=== PATIENT | female | born 1955 | race Caucasian/White ===

== ENCOUNTER 2018-05-04 11:35 | Outpatient (CLI) | payer BC ==
[~2018-05-04] VITALS: Ht 160 cm; Wt 81.3 kg
--- NOTE | ~2018-05-04 | HEMODYNAMI ---
PATIENT:SARITHA TUBBS MEDICAL RECORD: [id number] : 53 LOCATION:D.CAT ADMISSION DATE: 05/04/18 Generatedon:05/04/201813:45 Patient name: SARITHA TUBBS Patient #: [id number] SSN: : Date of study: 05/04/2018 Page: Of Hemodynamic Procedure Report Patient Data Patient Demographics Procedure consent was obtained First Name: SARITHA Gender: Female Last Name: ARLEY : 1955 Middle Initial: PATIENCE Age: 63 year(s) Patient #: [id number] Race: Unknown Additional ID: [id number] Contact details Address: [address] [place] [address] [place] State: [place] City: [place] Zip code: [address] Past Medical History Allergies Allergen Reaction Date Comments Reported NSAIDs 05/04/2018 Other allergy 05/04/2018 BENADRYL Admission Admission Data Admission Date: 05/04/2018 Admission Time: 11:35 Procedure Procedure Types Cath Procedure Diagnostic Procedure PPM/ICD PPM Dual Implant Loop Recorder Removal Procedure Description Procedure Date Procedure Date: 05/04/2018 Procedure Start Time: 13:06 Procedure End Time: 13:45 Procedure Staff Name Function Mark Fried MD Performing Physician Gab Bates MD Assisting physician Stoney Medina RN Nurse Yumiko Cooper RT Scrub Morena Oliveira RT Monitor Procedure Data Cath Procedure Fluoroscopy Diagnostic fluoroscopy Total fluoroscopy Time: 4 time: 4 min min Diagnostic fluoroscopy Total fluoroscopy dose: 97 dose: 97 mGy mGy Estimated blood loss: 5 ml Procedure Complications No complications Procedure Medications Medication Administration Route Dosage Ancef (1Gm/50ml NS) I.V.P.B 1 g Lidocaine 1% added to field 20 Oxygen etCO2 Nasal cannula 2 l/min Versed I.V. 1 mg Fentanyl I.V. 50 mcg Versed I.V. 1 mg Fentanyl I.V. 50 mcg Versed I.V. 0.5 mg Fentanyl I.V. 25 mcg Versed I.V. 0.5 mg Fentanyl I.V. 25 mcg Versed I.V. 1 mg Fentanyl I.V. 50 mcg Ancef Irrigation Topical 1 g (1gm/500ml NS) Hemodynamics Rest Heart Rate: 58 (bpm) Snapshots Pre Cath Intra NCS Post Cath Vital Signs Time Heart Resp SPO2 etCO2 NIBP (mmHg) Rhythm Pain Sedation Rate (ipm) (%) (mmHg) Status Level (bpm) 12:48:51 64 21 96 32.9 125/74(96) NSR 0 (11) 10(A) , No pain 12:53:05 57 18 95 32.1 125/69(103) NSR 0 (11) 10(A) , No pain 12:57:23 57 15 95 31.4 131/78(93) NSR 0 (11) 10(A) , No pain 13:01:37 63 13 96 37.4 118/68(96) NSR 0 (11) 10(A) , No pain 13:05:50 70 11 95 31.4 116/58(82) NSR 0 (11) 10(A) , No pain 13:10:07 73 17 94 39.6 117/67(87) NSR 0 (11) 9(A) , No pain 13:14:19 71 16 93 38.8 131/80(94) NSR 0 (11) 9(A) , No pain 13:18:37 72 13 94 41.1 117/64(86) NSR 0 (11) 9(A) , No pain 13:22:51 84 13 96 38.1 104/70(98) NSR 0 (11) 9(A) , No pain 13:27:52 68 14 97 39.6 126/67(92) NSR 0 (11) 9(A) , No pain 13:32:10 63 16 97 41.1 128/68(93) NSR 0 (11) 9(A) , No pain 13:36:28 69 13 97 40.4 125/72(105) NSR 0 (11) 9(A) , No pain 13:40:40 84 14 96 40 119/71(88) NSR 0 (11) 9(A) , No pain 13:44:27 71 14 96 39.6 110/77(86) NSR 0 (11) 10(A) , No pain Medications Time Medication Route Dose Verified Delivered Reason Notes Effectiv eness by by 12:51:07 Ancef I.V.P.B 1 g Mark Lua used for (1Gm/50ml St Daron Medina RN procedure NS) 12:51:41 Lidocaine added 20ml Mark De Guzman for local 1% to vial St Daron Bates MD anesthetic field x 2 12:51:56 Oxygen etCO2 2 Mark Lua used for Nasal l/min St Daron Medina RN procedure cannula 12:52:14 Ancef Topical 1 g Mark Gurrolaian used for Irrigation St Daron Bates MD procedure (1gm/500ml NS) 13:04:43 Versed I.V. 1 mg Mark Rgie for Leonor Medina RN sedation 13:04:50 Fentanyl I.V. 50 Mark Rgie for mcg Leonor Medina RN sedation 13:08:05 Versed I.V. 1 mg Mark Rgie for Leonor Medina RN sedation 13:08:09 Fentanyl I.V. 50 Mark Rgie for mcg Leonor Medina RN sedation 13:15:27 Versed I.V. 0.5 Mark Buffie for mg Leonor Medina RN sedation 13:15:33 Fentanyl I.V. 25 Mark Buffie for mcg Leonor Medina RN sedation 13:20:30 Versed I.V. 1 mg Mark Rgie for Leonor Medina RN sedation 13:20:34 Fentanyl I.V. 50 Mark Buffie for mcg Leonor Medina RN sedation 13:31:58 Versed I.V. 0.5 Mark Buffie for mg Leonor Medina RN sedation 13:32:03 Fentanyl I.V. 25 Mark Rgie for mcg Leonor Medina RN sedation Procedure Log Time Note 12:29:00 Time tracking: Regular hours (M-F 7:00 - 5:00) 12:29:04 Plan of Care:Hemodynamics will remain stable., Cardiac rhythm will remain stable., Comfort level will be maintained., Respiratory function will remain adequate., Patient/ family verbilizes understanding of procedure., Procedure tolerated without complication., Recovers from procedure without complications.. 12:29:09 Stoney Medina RN sent for patient. Start room use. 12:39:54 Patient received from Pre/Post Procedure Room to CCL 3 Alert and oriented. Tansferred to table in Supine position. 12:39:55 Warm blankets applied, and chago hugger turned on for patient comfort. 12:39:55 Correct patient and procedure confirmed by team. 12:39:56 Signed procedure consent form obtained from patient. 12:39:57 ECG and BP/O2 sat monitors applied to patient. 12:39:58 Full Disclosure recording started 12:47:45 Vital chart was started 12:47:48 Rhythm: sinus bradycardia 12:48:05 H&P Date Dictated: 04/27/2018 Within 30 days and on chart., H&P Addendum completed by physician on day of procedure. (MUST COMPLETE FOR ALL OUTPATIENTS). 12:48:14 Pre-procedure instructions explained to patient. 12:48:14 Pre-op teaching completed and patient verbalized understanding. 12:48:17 Family in patients room. 12:48:18 Patient NPO since Midnight. 12:48:28 Patient allergic to NSAIDs 12:48:44 Patient allergic to Other allergyBENADRYL 12:48:46 Is the patient allergic to Iodine/contrast media? No. 12:48:48 Is patient on blood thinner?No 12:48:49 Patient diabetic? No. 12:48:52 Previous problem with sedation/anesthesia? No ? 12:48:54 Snore? Yes 12:48:55 Sleep apnea? No 12:48:56 Deviated septum? No 12:48:57 Opens mouth fully? Yes 12:48:58 Sticks out tongue? Yes 12:49:00 Airway obstruction? No ? 12:49:02 Dentures? No ? 12:49:07 Patient pain scale 0/10 ?. 12:49:16 IV patent on arrival in left forearm with 0.9% NaCl at [facility]. 12:49:18 Lab results completed and on chart. 12:49:23 Left chest area was prepped with chlora-prep and draped in sterile fashion 12:49:24 Alarms reviewed by R. N. 12:49:24 Sharps counted by scrub and verified by R.N. 12:49:49 Medtronic national sales representative PEDRITO VASQUEZ present for procedure. 12:49:59 Pre sharps counted by scrub and verified by RN: Sutures: 7; Sponges: 5; Stick needles: 2; Skin needles: 2; Blade: 1; Cautery: 1 12:50:01 Grounding pad site Left thigh. 12:50:05 Grounding pad site free from injury. 12:50:10 Use device set JOSE CARLOS PPM 12:50:13 2-0 Ticron Multipack ([id number]) opened to sterile field. 12:50:13 3-0 Vicryl Single Pack [id number] opened to sterile field. 12:50:14 5-0 Monocryl PS2 [id number] opened to sterile field. 12:50:15 Cautery Tip Insulation Blower opened to sterile field. 12:50:15 Cautery Pushbutton Pencil opened to sterile field. 12:50:16 Mepilex Dressing ([id number]) opened to sterile field. 12:50:18 Immobilizer Large opened to sterile field. 12:51:07 Ancef (1Gm/50ml NS) 1 g I.V.P.B was administered by Stoney Medina RN; used for procedure; 12:51:41 Lidocaine 1% 20ml vial x 2 added to field was administered by Gab Bates MD; for local anesthetic; 12:51:56 Oxygen 2 l/min etCO2 Nasal cannula was administered by Stoney Medina RN; used for procedure; 12:52:14 Ancef Irrigation (1gm/500ml NS) 1 g Topical was administered by Gab Bates MD; used for procedure; 12:56:07 Baseline sample Acquired. 12:57:05 Physician paged 13:02:43 Final Timeout: patient, procedure, and site verified with staff and physician. All members of the team are in agreement. 13:02:47 Left chest site verified by team. 13:02:52 Physical assessment completed. ASA score P 2 - A patient with mild systemic disease as per Gab Bates MD. 13:02:54 Sedation plan: IV Moderate Sedation Medication:Versed, Fentanyl 13:04:43 Versed 1 mg I.V. was administered by Stoney Medina RN; for sedation; 13:04:50 Fentanyl 50 mcg I.V. was administered by Stoney Medina RN; for sedation; 13:06:27 Procedure started. 13:06:33 Lidocaine 1% was administered to left subclavicular area by Gab Bates MD . 13:08:05 Versed 1 mg I.V. was administered by Buffie Medina RN; for sedation; 13:08:09 Fentanyl 50 mcg I.V. was administered by Stoney Medina RN; for sedation; 13:08:34 Incision made to left subclavicular area. 13:08:45 Generator pocket made/opened. 13:12:47 DR VEGA. 13:14:04 Left subclavian vein accessed with 7Fr Peel Away Sheath. 13:14:08 Ventricular lead inserted and advanced. 13:14:11 Left subclavian vein accessed with 7Fr Peel Away Sheath. 13:14:13 Atrial lead inserted and advanced. 13:15:27 Versed 0.5 mg I.V. was administered by Stoney Medina RN; for sedation; 13:15:33 Fentanyl 25 mcg I.V. was administered by Stoney Medina RN; for sedation; 13:17:12 DR FRIED ARRIVED. 13:20:30 Versed 1 mg I.V. was administered by Stoney Medina RN; for sedation; 13:20:34 Fentanyl 50 mcg I.V. was administered by Stoney Medina RN; for sedation; 13:25:23 Ventricular lead positioned. 13:25:34 Ventricular lead tested. 13:25:37 Atrial lead positioned. 13:25:42 Atrial lead tested. 13:26:27 Peel-a-way sheath was split and removed. 13:26:28 Peel-a-way sheath was split and removed. 13:27:01 DR FRIED SCRUBBED OUT 13:27:08 Ventricular lead attachment was completed with 2-0 ticron. 13:28:37 Atrial lead attachment was completed with 2-0 ticron. 13:29:23 PPM Dual was attached to lead(s) and inserted into pocket. 13:29:56 Medtronic Advisa MRI PPM Dual Generator [id number] opened to sterile field. 13:29:57 Medtronic 4574-45 PPM Lead opened to sterile field. 13:29:57 Medtronic 4074-52 PPM Lead opened to sterile field. 13:31:58 Versed 0.5 mg I.V. was administered by Stoney Medina RN; for sedation; 13:32:00 Generator was sutured in place with 2-0 ticron. 13:32:03 Fentanyl 25 mcg I.V. was administered by Stoney Medina RN; for sedation; 13:32:07 Device pocket was irrigated with Ancef. 13:32:21 Subcutaneous closure was completed with 3-0 vicryl. 13:32:54 Parameters-- Generator: Mode: AAIR<=>DDDR. Lower Rate: 60bpm. Upper Rate: 120bpm. 13:33:23 Parameters--Ventricular P/R Wave: 7.7mV. Current: 0.1mA; Threshold: 0.3V; Impedence: 1502OHMS. 13:33:49 Parameters--Atrial P/R Wave: 4.5mV. Current: 0.3mA; Threshold: 0.3V; Impedence: 943OHMS. 13:34:18 Skin closure was completed with 5-0 monocryl. 13:36:42 SKIN INCISION MADE LEFT CHEST FOR LINQ REMOVAL 13:36:46 Linq was removed.. 13:36:55 Skin closure was completed with 5-0 monocryl. 13:37:48 Lt Chest incision was dressed with Mepilex dressing. 13:39:20 Procedure type changed to Cath procedure, Diagnostic procedure, PPM/ICD, PPM Dual Implant, Loop Recorder Removal 13:40:30 Procedure ended.(Physican Out) 13:40:38 Fluoroscopy time 04.00 minutes. 13:40:44 Fluoroscopy dose: 97 mGy 13:40:44 Flurop Dose total: 97 13:40:46 Sharps counted by scrub and verified by R.N. 13:40:59 Post sharps counted by scrub and verified by RN: Sutures: 7; Sponges: 5; Stick needles: 2; Skin needles: 2; Blade: 1; Cautery: 1 13:41:03 Insertion/operative site no bleeding no hematoma. 13:41:09 Post Chest area:stable, clean and dry 13:41:11 Post Procedure Pulses reassessed and unchanged 13:41:15 Post-procedure physical assessment completed. ASA score P 2 - A patient with mild systemic disease as per Gab Bates MD. 13:41:16 Post procedure rhythm: unchanged. 13:41:19 Estimated blood loss: 5 ml 13:41:23 Post procedure instruction explained to patient.Patient verbalizes understanding. 13:41:23 Patient needs reinforcement of post procedure teaching. 13:41:28 Procedure Complication : No complications 13:41:30 See physician's report for complete and final results. 13:42:17 Procedure and supply charges have been captured, reviewed, submitted and are correct. 13:42:41 PPM Dual was interrogated. 13:45:10 Vital chart was stopped 13:45:12 Report given to PCU. 13:45:15 Patient transfered to PCU with Bed. 13:45:26 Procedure ended. 13:45:26 Full Disclosure recording stopped 13:45:29 End room use (Document Last) Device Usage Item Name Manufacture Quantity Catalog Hospital Part Current Minimal Lot# / Number Charge Number Stock Stock Serial# Code 2-0 Ticron Ethicon 3 [id number] 083676 30749 [id number] 5 Multipack ([id number]) 3-0 Vicryl Ethicon 1 [id number] 040104 265652 873222 5 Single Pack [id number] 5-0 Monocryl Ethicon 1 [id number] 425917 446337 [id number] 5 PS2 Y495G Cautery Tip Microtek 1 [id number] 405458 576569 351519 5 [employer] Cautery Microtek 1 [id number] 943923 11087 723795 5 Push[employer] Pencil Mepilex Cardinal 1 [id number] 809622 426708 613061 5 [facility] ([id number]) Immobilizer Cardinal 1 [id number] 811261 533145 646768 5 [facility] Medtronic Medtronic 1 A2DR01 161702 606905 5 [id number] Advisa MRI / PPM Dual 2019-01-13 Generator [id number] Medtronic Medtronic 1 4574-45 722643 [id number] 5 [id number] 4574-45 PPM / Lead 2019-12-15 Medtronic Medtronic 1 4074-52 995671 392732 5 [id number] 4074-52 PPM / Lead 2019-12-27 Signature Audit [place] Stage Time Signature Unsigned Intra-Procedure 05/04/2018 Yumiko 1:45:51 PM Counts RT(R) Signatures Monitor : Morena Oliveira RT Signature : Date : Time : [facility] [address] [place] [address]
[2018-05-04] MEDS ORDERED: OMEPRAZOLE20 M1 PO (11:57)
[2018-05-04] MEDS ORDERED: MULTI-DAY VITAM1 TAB PO (11:57)
[2018-05-04] MEDS ORDERED: L-LYSINE500 M1 PO (11:59)
[2018-05-04] MEDS ORDERED: GLUCOPHAGE500 MG PO (12:00)
[2018-05-04] MEDS ORDERED: BACLOFEN10 MG PO (12:01)
[2018-05-04] MEDS ORDERED: METOPROLOL TART50 MG PO (12:02)
[2018-05-04] MEDS ORDERED: SENNA8.6 MG PO (12:02)
[2018-05-04] MEDS ORDERED: ASCORBIC ACID500 MG PO (12:03)
[2018-05-04 12:05] VITALS: BP 118/69; BMI 31.0
[2018-05-04 12:20] LABS: CALC OSMOLALITY 279 mosm/kg (275-300); CALCIUM 9.5 mg/dL (8.5-10.1); CARBON DIOXIDE 24.3 mmol/L (21.0-32.0); CHLORIDE - SERUM 104 mmol/L (98-107); CREATININE - SERUM 0.7 mg/dL (0.6-1.3); GLUCOSE 102 mg/dL (74-106); POTASSIUM - SERUM 4.3 mmol/L (3.5-5.1); SODIUM 139 mmol/L (136-145); UREA NITROGEN 19 mg/dL (7-18); eGFR NON AFRICAN AMERICAN 89 mL/min (90-120)
[2018-05-04 12:21] LABS: APTT 25.1 SECONDS (22.8-39.4); INR 1.01 (0.85-1.17); PROTIME 12.8 SECONDS (11.6-15.0)
[2018-05-04 12:24] LABS: HEMATOCRIT 41.8 % (36.0-48.0); HEMOGLOBIN 14.4 g/dL (12-16); MCH 32.1 pg (26.0-34.0); MCHC 34.4 g/dL (31.0-37.0); MCV 93.1 fL (80.0-100.0); MEAN PLATELET VOLUME 9.4 fL (7.4-10.4); RBC 4.49 10x6/uL (4.00-5.40); RDW 12.7 % (11.5-14.5); WBC 6.5 10x3/uL (4.8-10.8)
--- NOTE | 2018-05-04 14:39 | NUR ---
ADMITTED FROM SPECIAL SERVICES SUPERVISOR. AWAKE AND ALERT. PT HAD A PACEMAKER IMPLANT TO THE LEFT SHOULDER AREA.DRSG DRY AND INTACT.SLING INTACT. FAMILY AT BEDSIDE PACER SHOWING PACED RHYTHM.
[2018-05-04 15:55] VITALS: Ht 160 cm; Wt 81.3 kg
--- NOTE | 2018-05-04 15:55 | NUR ---
ASSESSMENT COMPLETE PT AAOX4 RESP UNLABORED DENIES ANY NEEDS OR DISCOMFORT AT THIS TIME NAD NOTE SLING IN PLACE TO LEFT ARM
--- NOTE | 2018-05-04 16:18 | NUR ---
HOB UP. NO BLEEDING TO CATH SITE. V/S STABLE MONITOR SHOWS PACED RHYTHM
--- NOTE | 2018-05-04 17:44 | NUR ---
LYING QUIETLY. DENIES ANY NEEDS. SR UP WITH CALL LIGHT IN REACH.TELEMERTY SHOWS PACED RHYTHM.
--- NOTE | 2018-05-04 19:47 | NUR ---
RESUMING PATIENT CARE. PATIENT ALERT AND ORIENTED. PATIENT RESPIRATIONS ARE EVEN AND UNLABORED. NO S/S OF DISTRESS. NO C/O PAIN. PATIENT BOARD UPDATED. CALL LIGHT WITHIN REACH. WILL CPOC.
[2018-05-04 20:00] VITALS: BP 112/62
[2018-05-04 21:47] VITALS: BP 112/62
[2018-05-05 01:23] VITALS: BP 131/59
[2018-05-05 05:40] VITALS: BP 126/71
--- NOTE | 2018-05-05 07:30 | NUR ---
ASSESSMENT COMPLETED. ALERT AND ORIENTED. TELEMERTY SHOWS PACED RHYTHM. LEFT FA SL. PACER TO LEFT SHOULDER WITH SLING IN PLACE. PT TO BE DISCHARGED. IV DCD WITH TIP INTACT. .
--- NOTE | 2018-05-05 11:30 | NUR ---
PT DISCHARGED. IV DCD WITH TIP INTACT. INSTRUCTIONS GIVEN TO PT AND FRIEND.TO PRIVATE CAR PER WHEELCHAIR
--- NOTE | 2018-05-05 13:31 | OP ---
PATIENT NAME: SARITHA TUBBS MEDICAL RECORD: [id number] :53 LOCATION:D.CAT ADMISSION DATE: SURGEON: CHAR BRANCH MD DATE OF OPERATION: 05/04/2018 PREOPERATIVE DIAGNOSES: 1. Paroxysmal atrial fibrillation. 2. Diabetes mellitus. 3. Hypertension. POSTOPERATIVE DIAGNOSES: 1. Paroxysmal atrial fibrillation. 2. Diabetes mellitus. 3. Hypertension. PROCEDURES: 1. Left subclavian vein dual lead pacemaker placement. 2. Fluoroscopic interpretation. 3. LINQ removal. SURGEON: Char Branch MD CO-SURGEON: Mark Garcia MD REPORT OF OPERATION: The patient's left chest was prepped and draped in sterile fashion. A total of 20 mL of 1% lidocaine with epinephrine was infused into the surrounding tissues. A transverse incision was made on the left superolateral chest and a subcutaneous pouch was made over the pectoral fascia. [place] were used to cannulate the left subclavian vein and guidewires were advanced with ease. Fluoro was used to note that the wires were in good position in the venous system. The dilator trocar device was replaced over the wires and the wires and dilators were removed. The leads were advanced through the trocars, and at this point, Dr. Garcia positioned the leads appropriately in atrium and ventricle. Once the leads were noted to be functioning appropriately, these were sutured into place with #0 Ti-Crons. We then affixed the leads to the pacemaker and the pacemaker was placed in the subcutaneous pouch. This was sutured to the pectoral fascia using a single interrupted #0 Ti-Cron. We irrigated out the wound with antibiotic solution. The subcutaneous tissues were reapproximated with interrupted 3-0 Vicryl and the skin was closed with subcutaneous running 5-0 Monocryl. A skin incision was then made on the left upper chest overlying the LINQ. The LINQ was completely excised. The subcutaneous tissues were then closed using a single interrupted 5-0 Monocryl. The wounds were then dressed appropriately. COMPLICATIONS: None. CONDITION: Stable. ANESTHESIA: Local MAC. BLOOD LOSS: Minimal. TRANSINT:[id number] Voice Confirmation ID: [id number] DOCUMENT ID: [id number] OPERATIVE REPORT [id number] SARITHA TUBBS CHAR BRANCH MD at 1331 CC: [id number] DICTATION DATE: 05/04/18 1344 TANNING SALON ATTENDANT: 05/04/18 1654 DEP CLI 05/05/[address] [facility] [address] [place] [address]
--- NOTE | 2018-05-11 13:30 | OP ---
PATIENT NAME: JHOANA TUBBS MEDICAL RECORD: [id number] :53 LOCATION:D.CAT ADMISSION DATE: SURGEON: TORIE FRIED MD DATE OF OPERATION: 05/04/2018 PROCEDURE: Lead portion of permanent pacemaker placement. SURGEON: Gab Bates MD INDICATION: Sick sinus syndrome with pauses, diagnosed via LINQ monitoring. DESCRIPTION OF PROCEDURE: After left subclavian was cannulated via modified Seldinger technique via Dr. Bates, first, under fluoroscopic guidance, I placed the RV lead in the RV apex without difficulty. After adequate R waves and thresholds were obtained, I then placed the right atrial lead in the right atrial appendage without difficulty. After adequate R waves and thresholds were obtained, the leads were attached to appropriate poles of the generator and pocket was closed via Dr. Bates. IMPRESSION: Successful lead portion of permanent pacemaker placement on Jhoana Tubbs. COMPLICATIONS: None. ESTIMATED BLOOD LOSS: Minimal. DISPOSITION: To the floor, stable. TRANSINT:[id number] Voice Confirmation ID: [id number] DOCUMENT ID: [id number] TORIE FRIED MD at 1330 CC: [id number] DICTATION DATE: 05/04/18 1334 PICKING SUPERVISOR: 05/04/18 1641 DEP CLI 05/05/18 [place] [id number] [place] [address]
== END 2018-05-05 11:34 | disposition home or self-care (01) ==
LOC: D.CATH 11:35 → D.M2 14:32 → D.CATH 05-05 11:34
PROVIDERS: Internal Medicine Interventional Cardiology
DX: I49.5 Sick sinus syndrome (principal); I48.0 Paroxysmal atrial fibrillation; E11.9 Type 2 diabetes mellitus without complications; I10 Essential (primary) hypertension

== ENCOUNTER → 2019-04-12 09:29 | Outpatient (CLI) | payer MEDICARE, BC ==
[2018-05-04 15:55] VITALS: BMI 31.0
--- NOTE | ~2019-04-12 | ST ---
PATIENT:SARITHA TUBBS MEDICAL RECORD: [id number] SEX: F LOCATION:[facility] ORDER #: ADMISSION DATE: 04/12/19 AGE OF PATIENT: 64 REFERRING PHYSICIAN: INTERPRETING PHYSICIAN: ANNE COLLINS MD DATE OF SERVICE: PROCEDURE: Nuclear stress test. INDICATION: Chest pain, abnormal ECG. She was exercised on standard Lexiscan protocol with 33 mCi of sestamibi injected at peak stress, 11 mCi used previously for rest images. FINDINGS: Gated SPECT reveals preserved ejection fraction at 73% with good wall motion and thickening and brightening throughout all segments. SPECT imaging Cardiolite was used as myocardial perfusion agent. There is reversibility anteriorly and apically. This includes the basal, mid, apical anterior segments as well as the apex itself. The degree of reversibility is mild to moderate. The amount of myocardium involved is moderate. OVERALL IMPRESSION: This is an intermediate risk abnormal nuclear stress test with reversibility anteroapically suggestive of hemolytic significant coronary artery disease. TRANSINT:[id number] Voice Confirmation ID: [id number] DOCUMENT ID: [id number] ANNE COLLINS MD CC: SAIMA GARCIA MD [id number] DICTATION DATE: 04/13/19 1413 INSTRUMENT TECHNICIAN HELPER: 04/14/19 0446 DEP CLI 04/12/19 [facility] [address] [place] [address]
[~2019-04-12 09:29] MED LIST: ASCORBIC ACID500 MG PO; BACLOFEN10 MG PO; GLUCOPHAGE500 MG PO; L-LYSINE500 M1 PO; METOPROLOL TART50 MG PO; MULTI-DAY VITAM1 TAB PO; OMEPRAZOLE20 M1 PO; SENNA8.6 MG PO
== END | disposition home or self-care (01) ==
LOC: D.HCCARDIO 09:29
PROVIDERS: ATTEND Internal Medicine Interventional Cardiology
DX: R07.9 Chest pain, unspecified (principal)

== ENCOUNTER 2019-04-20 09:21 | Outpatient (CLI) | payer MEDICARE, BC ==
[~2019-04-20] VITALS: Ht 160 cm; Wt 83.2 kg
--- NOTE | ~2019-04-20 | HEMODYNAMI ---
PATIENT:SARITHA TUBBS MEDICAL RECORD: [id number] : 53 LOCATION:D.CAT ADMISSION DATE: 04/20/19 Generatedon:04/23/20198:27 Patient name: SARITHA TUBBS Patient #: [id number] SSN: : Date of study: 04/20/2019 Page: Of Hemodynamic Procedure Report Patient Data Patient Demographics Procedure consent was obtained First Name: SARITHA Gender: Female Last Name: ARLEY : 1955 [facility] Initial: PATIENCE Age: 64 year(s) Patient #: [id number] Race: Unknown Additional ID: [id number] Contact details [address]: [address] [place] [address] [place] State: [place] City: [place] Zip code: [address] Past Medical History Allergies Allergen Reaction Date Comments Reported NSAIDs 05/04/2018 Other allergy 05/04/2018 BENADRYL NSAIDs 04/20/2019 Aspirin 04/20/2019 Admission Admission Data Admission Date: 04/20/2019 Admission Time: 9:21 Procedure Procedure Types Cath Procedure Diagnostic Procedure C LH w/Coronaries Procedure Description Procedure Date Procedure Date: 04/20/2019 Procedure Start Time: 12:42 Procedure End Time: 12:47 Procedure Staff Name Function Ayaz Stovall RT Scrub Tyler Guzman MD Performing Physician Myra Umana RN Nurse Floyd Ivey RT Monitor Procedure Data Cath Procedure Fluoroscopy Diagnostic fluoroscopy Total fluoroscopy Time: 0.8 time: 0.8 min min Diagnostic fluoroscopy Total fluoroscopy dose: 101 dose: 101 mGy mGy Contrast Material Contrast Material Type Amount (ml) Isovue 370 42 Entry Location Entry Primary Successful Side Size Upsize Upsize Entry Closure Asencio ccessful Closure Location (Fr) 1 (Fr) 2 (Fr) Remarks Device Remarks Radial Right 6 Fr Mechanical artery Short Compression Diagnostic catheters Device Type Used For End Catheter Placement DIAGNOSTIC [place] 110cm 5 LV Angiography Fr catheter ([id number]) Procedure Complications No complications Procedure Medications Medication Administration Route Dosage 0.9% NaCl I.V. 100 ml/hr Lidocaine 2% added to field 20 Heparin Flush Bag added to field 2 bags (1000units/500ml NS) Oxygen NC 2 l/min Radial Cocktail added to field 1 syringe (Verapamil 2mg/Nitro 400mcg/Heparin 1500units) Versed I.V. 2 mg Fentanyl I.V. 100 mcg Versed I.V. 1 mg Hemodynamics Rest Heart Rate: 61 (bpm) Snapshots Pre Cath Intra NCS Post Cath Vital Signs Time Heart Resp SPO2 etCO2 NIBP (mmHg) Rhythm Pain Sedation Rate (ipm) (%) (mmHg) Status Level (bpm) 12:12:54 61 16 99 33.4 129/83(106) NSR (Missing) 10(A) 12:17:04 59 15 97 31.8 124/75(91) NSR (Missing) 10(A) 12:21:11 63 15 96 37.2 121/74(90) NSR (Missing) 10(A) 12:25:21 63 12 93 38.7 109/65(81) NSR (Missing) 10(A) 12:29:27 63 14 92 40.2 107/63(80) NSR (Missing) 10(A) 12:33:33 64 13 92 38.6 112/64(75) NSR (Missing) 10(A) 12:37:41 63 12 93 38.7 112/62(84) NSR (Missing) 10(A) 12:41:49 62 13 93 37.2 108/61(82) NSR (Missing) 9(A) 12:45:56 74 13 90 38.7 102/55(76) NSR (Missing) 9(A) 12:51:28 68 13 92 0 96/50(80) NSR (Missing) 10(A) Medications Time Medication Route Dose Verified Delivered Reason Notes Ef fectiveness by by 12:19:44 0.9% NaCl I.V. 100 Tyler Myra used for ml/hr Thomas Umana binding dyer 12:19:53 Lidocaine 2% added 20ml Tyler Myra for local to vial Thomas Childsor anesthetic field RN 12:20:07 Heparin Flush added 2 bags Tyler Myra used for Bag to Thomas Umana procedure (1000units/500ml field RN NS) 12:20:16 Oxygen NC 2 l/min Tyler Myra for low 02 Thomas Umana sats RN 12:20:36 Radial Cocktail added 1 Tyler Myra used for (Verapamil to syringe Thomas Umana procedure 2mg/Nitro RN 400mcg/Hepari 12:41:20 Versed I.V. 2 mg Tyler Myra for Thomas Childsor sedation RN 12:41:27 Fentanyl I.V. 100 mcg Tyler Myra for Thomas Umana sedation RN 12:42:36 Versed I.V. 1 mg Tyler Myra for Thomas Umana sedation preschool head teacher Log Time Note 11:50:41 Floyd Suit RT(R) sent for patient. Start room use. 12:02:53 Time tracking: Regular hours (M-F 7:00 - 5:00) 12:02:57 Plan of Care:Hemodynamics will remain stable., Cardiac rhythm will remain stable., Comfort level will be maintained., Respiratory function will remain adequate., Patient/ family verbilizes understanding of procedure., Procedure tolerated without complication., Recovers from procedure without complications.. 12:04:29 Patient received from Pre/Post Procedure Room to CCL 3 Alert and oriented. Tansferred to table in Supine position. 12:04:31 Signed procedure consent form obtained from patient. 12:04:35 Correct patient and procedure confirmed by team. 12:04:35 Warm blankets applied, and chago hugger turned on for patient comfort. 12:04:36 ECG and BP/O2 sat monitors applied to patient. 12:07:39 Risk of Mortality: 0.1 12:07:49 Risk of blood transfusion: 0.5 12:07:52 Risk of ELAV: 0.3 12:08:24 Stress Test: yes; abnormal anteroapically 12:08:32 Lab results completed and on chart. 12:11:53 Vital chart was started 12:12:58 Maximum allowable contrast dose (3.7 X eGFR X 0.75)246 ml. 12:13:06 2) 60-89 Mildly reduced kidney function, and other findings (as for stage 1) point to kidney disease. 12:13:14 Baseline sample Acquired. 12:13:17 Rhythm: sinus rhythm 12:13:18 Full Disclosure recording started 12:13:31 H&P Date Dictated: 04/12/2019 Within 30 days and on chart., H&P Addendum completed by physician on day of procedure. (MUST COMPLETE FOR ALL OUTPATIENTS). 12:13:32 Pre-procedure instructions explained to patient. 12:13:33 Pre-op teaching completed and patient verbalized understanding. 12:13:35 Family in waiting room. 12:13:37 Patient NPO since Midnight. 12:13:53 Patient allergic to NSAIDs 12:14:02 Patient allergic to Aspirin 12:14:07 Is the patient allergic to Iodine/contrast media? No. 12:15:10 Is patient on blood thinner?No 12:15:47 Patient diabetic? Yes. 12:15:48 If diabetic: On Metformin? Yes 12:16:03 If on Metformin: Last Dose? 04/19/2019 12:16:06 ----Pre-sedation anethsthesia assessment.---- 12:16:08 Previous problem with sedation/anesthesia? No ? 12:16:12 Snore? Yes 12:16:13 Sleep apnea? Yes 12:16:16 Deviated septum? No 12:16:17 Opens mouth fully? Yes 12:16:19 Sticks out tongue? Yes 12:16:22 Airway obstruction? No ? 12:16:27 Dentures? No ? 12:16:31 Pre procedure: right dorsailis pedis pulse 2+ Normal; easily identifiable; not easily obliterated 12:16:36 Modified Juvencio's test Ulnar < 7 seconds 12:16:39 Patient pain scale 0/10 ?. 12:16:45 IV patent on arrival in left antecubital with 0.9% NaCl at [facility]. 12:16:53 Right Radial & Right Groin area was prepped with chlora-prep and draped in sterile fashion 12:16:54 Alarms reviewed by R. N. 12:16:55 Sharps counted by scrub and verified by R.N. 12:16:56 Physician paged 12:19:44 0.9% NaCl 100 ml/hr I.V. was administered by Myra Umana RN; used for procedure; Verbal order read back and verified. 12:19:53 Lidocaine 2% 20ml vial added to field was administered by Myra Umana RN; for local anesthetic; Verbal order read back and verified. 12:20:07 Heparin Flush Bag (1000units/500ml NS) 2 bags added to field was administered by Myra Umana RN; used for procedure; Verbal order read back and verified. 12:20:16 Oxygen 2 l/min NC was administered by Myra Umana RN; for low 02 sats; Verbal order read back and verified. 12:20:36 Radial Cocktail (Verapamil 2mg/Nitro 400mcg/Heparin 1500units) 1 syringe added to field was administered by Myra Umana RN; used for procedure; Verbal order read back and verified. 12:37:08 Physician arrived 12:37:10 Zero performed for pressure channel P1 12:40:18 Final Timeout: patient, procedure, and site verified with staff and physician. All members of the team are in agreement. 12:40:18 --------ALL STOP TIME OUT------ 12:40:20 Right Radial & Right Groin site verified by team. 12:40:25 Fire Safety Assessment: A--An alcohol-based skin anteseptic being used preoperatively., C--Open oxygen or nitrous oxide is being used., D--An ESU, laser, or fiber-optic light is being used. 12:40:30 Physical assessment completed. ASA score P 2 - A patient with mild systemic disease as per Tyler Guzman MD. 12:40:34 Sedation plan: IV Moderate Sedation Medication:Versed, Fentanyl 12:41:01 Use device set Radial Dx or PCI 12:41:05 Medline Cath Pack ([id number]) opened to sterile field. 12:41:05 ACIST Syringe (75936) opened to sterile field. 12:41:06 Bag Decanter () opened to sterile field. 12:41:07 ACIST Manifold (83982) opened to sterile field. 12:41:07 ACIST Hand Control (95174) opened to sterile field. 12:41:09 MBrace Wrist Support ([id number]) opened to sterile field. 12:41:09 Tegaderm 4 x 4 (1626W) opened to sterile field. 12:41:12 EMERALD Guide Wire (182-624) opened to sterile field. 12:41:13 SHEATH 6FR RAIN (8453317) opened to sterile field. 12:41:15 ZEPHYR REGULAR TR BAND (162515) opened to sterile field. 12:41:20 Versed 2 mg I.V. was administered by Myra Umana RN; for sedation; Verbal order read back and verified. 12:41:23 Procedure started. 12:41:27 Fentanyl 100 mcg I.V. was administered by Myra Umana RN; for sedation; Verbal order read back and verified. 12:42:06 Local anesthetic to right radial artery with Lidocaine 2% by Tyler Guzman MD.INITIAL ACCESS ONLY 12:42:14 A 6 Fr Short sheath was inserted into the Right Radial artery 12:42:36 Versed 1 mg I.V. was administered by Myra Umana RN; for sedation; Verbal order read back and verified. 12:43:38 A DIAGNOSTIC [place] 110cm 5 Fr catheter (423067) was advanced over the wire and used for LV Angiography. 12:43:42 LV gram done using COMER 12:43:51 EF : 55 % 12:44:07 LCA angiography performed. 12:44:12 RCA angiography performed. 12:46:20 Sheath removed intact; hemostasis achieved with Mechanical Compression to the Right Radial artery. 12:46:22 Procedure ended.(Physican Out) 12:46:40 Fluoroscopy time 00.80 minutes. 12:46:46 Fluoroscopy dose: 101 mGy 12:46:46 Flurop Dose total: 101 12:46:56 Dose Area Product 858 mGy/cm. 12:47:03 Contrast amount:Isovue 370 42ml. 12:47:06 Maximum allowable dose exceeded? No. 12:47:07 Sharps counted by scrub and verified by R.N. 12:47:09 [place] band inflated with 10cc of air. 12:47:14 Post right radial artery:stable 12:47:16 Post Procedure Pulses reassessed and unchanged 12:47:23 Post procedure rhythm: unchanged. 12:47:25 Post procedure instruction explained to patient.Patient verbalizes understanding. 12:47:26 Procedure and supply charges have been captured, reviewed, submitted and are correct. 12:47:40 Procedure Complication : No complications 12:47:42 Vital chart was stopped 12:47:45 Operative report dictated upon procedure completion. 12:47:46 See physician's report for complete and final results. 12:47:51 Report given to Pre/Post Procedure Room. 12:47:54 Patient transfered to Pre/Post Procedure Room with Stretcher. 12:47:56 Full Disclosure recording stopped 12:47:56 Procedure ended. 12:47:59 End room use (Document Last) Device Usage Item Name Manufacture Quantity Catalog Hospital Part Current Minima l Lot# / Number Charge Number Stock Stock Serial# Code ACIST Acist 1 67698 484272 [id number] 227034 20 Syringe Medical (21001) Systems Inc Medline Medline 1 [id number] 305254 34568 187800 5 Cath Pack ([id number]) Bag Microtek 1 2001S 492357 06997 428337 5 Decanter Medical Inc. (2001S) ACIST Hand Acist 1 02448 215134 164685 693375 5 Control Medical (02011) Systems Inc ACIST Acist 1 22787 903198 843957 336536 5 Manifold Medical (30910) Systems Inc Tegaderm 4 3M 1 1626W 802952 982367 760293 5 x 4 (1626W) MBrace Advanced 1 140-0250-00 241820 10594 864280 5 Wrist Vascular Support Dynamics ([id number]) EMERALD Cardinal 1 502-455 401044 387602 220374 5 Guide Wire Health (502-455) SHEATH 6FR Cardinal 1 3625780 957983 3256981 442516 5 [facility] Health (0169792) ZEPHYR Cardinal 1 312033 681890 2437504 711771 5 REGULAR TR Health BAND (682515) DIAGNOSTIC Terumo 1 40-7358 057992 975063 535699 5 [place] 110cm 5 Fr catheter (485660) Signature Audit [place] Stage Time Signature Unsigned Intra-Procedure 04/20/2019 Myra Umana RN 12:53:55 PM Dong BRANTLEY 04/20/2019 12:56:14 PM Intra-Procedure 04/20/2019 Myra 12:56:49 PM Dong BRANTLEY Intra-Procedure 04/20/2019 Floyd Ivey RT(R) 12:57:09 PM Intra-Procedure 04/20/2019 Tyler Stovall RT(R) 12:57:25 PM 04/23/2019 8:23:50 AM Intra-Procedure 04/23/2019 Tyler Guzman 8:27:05 AM [facility] [address] [place] [address]
--- NOTE | ~2019-04-20 | OP ---
PATIENT NAME: SARITHA TUBBS MEDICAL RECORD: [id number] :53 LOCATION:D.CAT ADMISSION DATE: SURGEON: ANNE COLLINS MD DATE OF OPERATION: 04/20/2019 PROCEDURES: 1. Left heart catheterization. 2. Selective cholangiography. 3. Left ventriculogram. INDICATION: Angina and coronary artery disease. PROCEDURE IN DETAIL: After informed consent was obtained and after a detailed description of the risks, benefits as well as alternative therapies, the patient elected to proceed with angiogram and heart catheterization. The right radial area was prepped and draped in normal sterile fashion. Right radial artery was cannulated via modified Seldinger technique with placement of 5-Burkinan sheath. All catheters exchanged through this sheath. FINDINGS: The left ventriculogram was performed in standard 30-degree COMER view, reveals good cardiac wall motion, ejection fraction estimated 60%. SELECTIVE CORONARY ANGIOGRAPHY: Left main, left anterior descending, left circumflex, right coronary artery are all smooth-walled vessels with no angiographic evidence of coronary artery disease. OVERALL IMPRESSION: 1. No angiographic evidence of coronary artery disease. 2. Normal left heart pressures. 3. Normal left ventricular systolic function. Chest pain is noncardiac in etiology. No further cardiac workup needs to be ascertained. TRANSINT:[id number] Voice Confirmation ID: [id number] DOCUMENT ID: [id number] ANNE COLLINS MD CC: [id number] DICTATION DATE: 04/20/19 1248 DURABILITY ENGINEER: 04/20/19 1715 DEP CLI 04/20/19 [facility] [address] [id number]
[2019-04-20] MEDS ORDERED: MERIBIN5 MG PO (10:00)
[2019-04-20] MEDS ORDERED: FISH OIL 1,0001 CA1 PO (10:00)
[2019-04-20 10:12] VITALS: BP 136/74; Ht 160 cm; Wt 83.2 kg
[2019-04-20 10:26] LABS: BASOPHILS 0.4 % (0-2); EOSINOPHILS 0.6 % (0-7); HEMATOCRIT 39.7 % (36.0-48.0); HEMOGLOBIN 13.4 g/dL (12-16); IMMATURE GRANULOCYTES 0.1 % (0-5); LYMPHOCYTES 32.8 % (15-50); MCH 31.7 pg (26.0-34.0); MCHC 33.8 g/dL (31.0-37.0); MCV 93.9 fL (80.0-100.0); MEAN PLATELET VOLUME 9.3 fL (7.4-10.4); MONOCYTES 5.9 % (2-11); NEUTROPHILS 60.2 % (40-80); PLATELET COUNT 235 10x3/uL (130-400); RBC 4.23 10x6/uL (4.00-5.40); RDW 12.6 % (11.5-14.5); WBC 7.8 10x3/uL (4.8-10.8)
[2019-04-20 10:39] LABS: ALT (SGPT) 56 U/L (10-68); CALC OSMOLALITY 280 mosm/kg (275-300); CALCIUM 9.1 mg/dL (8.5-10.1); CHLORIDE - SERUM 106 mmol/L (98-107); CHOL - HDL RATIO 3.9 ratio (2.3-4.1); CHOLESTEROL, TOTAL 188 mg/dL (0-200); CREATININE - SERUM 0.7 mg/dL (0.6-1.3); GLUCOSE 109 mg/dL (74-106); HDL CHOLESTEROL 48 mg/dL (32-96); LDL CHOLESTEROL 118 mg/dL (0-100); LDL-HDL RATIO 2.5 ratio (1.5-3.5); SODIUM 139 mmol/L (136-145); TRIGLYCERIDE 114 mg/dL (30-200); UREA NITROGEN 19 mg/dL (7-18); eGFR NON AFRICAN AMERICAN 89 mL/min (90-120)
[2019-04-20 10:41] LABS: POTASSIUM - SERUM 4.6 mmol/L (3.5-5.1)
--- NOTE | 2019-04-20 12:55 | NUR ---
PT RECEIVED FROM SUPERINTENDENT [employer] PER ERICER. PT VERY DROWSY BUT VERBALLY AROUSABLE. IV PATENT INFUSING VIA ORDERS. PT PLACED ON CARDIAC MONITORS, HR PACED AT 64, BP 108/61, RR 13, SAT 94 ON ROOM AIR. ZYPHER BAND AND IMMOBILIZER IN PLACE, DRESSING W SOME BLOOD BUT NO ACTIVE BLEEDING OR S/S HEMATOMA NOTED. ARM PINK AND WARM, CAP REFILL BRISK. PT INSTRUCTED NOT TO USE R ARM, SHE VERBALIZED UNDERSTANDING. CALL LIGHT IN REACH, SODA GIVEN PER REQUEST.
--- NOTE | 2019-04-20 13:15 | NUR ---
PT RESTING W/O COMPLAINTS. Z BAND AND IMMOBILIZER IN PLACE. NO BLEEDING OR S/S HEMATOMA NOTED. CAP REFILL BRISK. VSS. PT TOLERATING PO FLUIDS W/O NAUSEA.
--- NOTE | 2019-04-20 14:03 | NUR ---
PT SITTING UP TALKING W VISITORS. DENIES PAIN OR NEEDS AT THIS TIME. 4CC AIR REMOVED FROM Z BAND W/O BLEEDING NOTED. NO S/S HEMATOMA. CAP REFILL REMAINS BRISK. HR 73, BP 110/64, RR 14. CALL LIGHT IN REACH.
--- NOTE | 2019-04-20 14:31 | NUR ---
DR COLLINS AT , REPORTED TO PT AND FAMILY PLAN OF CARE AND PROCEDURE RESULTS. 2 ADD'L CC AIR REMOVED FROM Z BAND W/O BLEEDING OR SWELLING NOTED. VSS. CALL LIGHT IN REACH
--- NOTE | 2019-04-20 15:00 | NUR ---
DISCHARGE INSTRUCTIONS REVIEWED W PT AND DAUGHTER, BOTH VERBALIZED UNDERSTANDING. IV REMOVED W CATH INTACT, MONITORS REMOVED AND PT UP TO DRESS FOR DISCHARGE.
--- NOTE | 2019-04-20 15:10 | NUR ---
PT AMBULATED TO BR, VOIDING W/O DIFFICULITY. 1515 REMAINING AIR AND Z BAND REMOVED, NO BLEEDING OR S/S HEMATOMA NOTED. 2X2 AND TEGADERM DRESSING APPLIED, IMMOBILIZER REPOSITIONED. 1520 PT DISCHARGED VIA WC TO DAUGHTER WAITING IN PRIVATE VEHICLE. PT HAD ALL BELONGINGS AND DISCHARGE INFORMATION
== END 2019-04-20 15:20 | disposition home or self-care (01) ==
LOC: D.CATH 09:21
PROVIDERS: ATTEND Internal Medicine Interventional Cardiology
DX: I25.119 Atherosclerotic heart disease of native coronary artery with unspecified angina pectoris (principal); R07.9 Chest pain, unspecified; R42 Dizziness and giddiness; I48.0 Paroxysmal atrial fibrillation; Z95.0 Presence of cardiac pacemaker